=== PATIENT | male | born 1945 | race Caucasian/White ===

== ENCOUNTER 2023-07-03 04:09 | Day surgery (SDC) | payer OTHER, MEDICARE ==
[2023-07-02 08:43] VITALS: BMI 30.2
[2023-07-03] MEDS ORDERED: MIDAZOLAM HCL 2 MG/2 ML SINGLE DOSE VIAL ONE (07:30)
[2023-07-03] MEDS ORDERED: DEXAMETHASONE SOD PHOSPHATE 4 MG/1 ML VIAL ONE (07:30)
[2023-07-03] MEDS ORDERED: PROPOFOL 40 ML ONE (07:30)
[2023-07-03] MEDS ORDERED: ROCURONIUM BROMIDE 50 MG/5 ML SYRINGE ONE (07:30)
[2023-07-03] MEDS ORDERED: LIDOCAINE HCL/PF 2% SDV 5ML VIAL ONE (07:30)
[2023-07-03] MEDS ORDERED: ONDANSETRON 4 MG/2 ML VIAL ONE (07:30)
[2023-07-03] MEDS ORDERED: FENTANYL CITRATE/PF 50 MCG/ML VIAL ONE ×3 (07:30→08:58)
[2023-07-03] MEDS ORDERED: SUGAMMADEX SODIUM 200 MG/2 ML VIAL ONE (07:31)
[2023-07-03] MEDS ORDERED: SEVOFLURANE 250 ML BTL ONE (07:31)
[2023-07-03] MEDS ORDERED: GENTAMICIN SO4 80 MG/2 ML VIAL ONE (07:57)
[2023-07-03] MEDS ORDERED: ceFAZolin SODIUM 1 GM VIAL ONE (07:57)
[2023-07-03] MEDS ORDERED: ceFAZolin SODIUM 1 GM VIAL IVPB ONE (07:58)
[2023-07-03] MEDS ORDERED: GENTAMICIN SO4 80 MG/2 ML VIAL IVPB ONE (07:58)
[2023-07-03] MEDS ORDERED: IOHEXOL 300 MG/ML INFUS..BTL IV ONE (07:58)
[2023-07-03] MEDS ORDERED: ONDANSETRON 4 MG/2 ML VIAL IVPUSH PRN (08:29)
[2023-07-03] MEDS ORDERED: PROMETHAZINE HCL 25 MG/1 ML VIAL IVPB PRN (08:29)
[2023-07-03] MEDS ORDERED: ACETAMINOPHEN 1000 MG/100 ML BAG IVPB PRN (08:29)
[2023-07-03] MEDS ORDERED: oxyCODONE HCL 5 MG TABLET PO PRN ×2 (08:29)
[2023-07-03] MEDS ORDERED: LACTATED RINGERS SOLUTION 1,000 ML IV SCH (08:30)
[2023-07-03 09:10] VITALS: RESP 18
[2023-07-03 10:36] VITALS: BP 105/65; PULSE 65; TEMP 98.6
== END 2023-07-03 10:55 | disposition home or self-care (01) ==
LOC: JASU-SURG 04:09
PROVIDERS: ATTEND Urology
PROC: 0T768DZ Dilation of Right Ureter with Intraluminal Device, Via Natural or Artificial Opening Endoscopic (ICD-10-PCS; principal; 2023-07-03 07:30)
DX: R31.0 Gross hematuria (principal); N13.30 Unspecified hydronephrosis; D41.21 Neoplasm of uncertain behavior of right ureter
CPT/HCPCS: 76000-TC-FY; 94760; C1758; C1769; C2617